=== PATIENT | female | born 1960 | race Caucasian/White ===

== ENCOUNTER 2020-02-03 20:27 | Emergency (ER) | payer OTHER ==
[2020-02-03] MEDS ORDERED: Sodium Chloride 0.9% 10 ML Syringe FLUSH PRN (21:19)
[2020-02-03] MEDS ORDERED: cefTRIAXone 2 GM in Sodium Chloride 0.9% 100 ML IV ONE (21:19)
--- NOTE | 2020-02-03 21:26 | EDM.PDOC ---
ED HPI GENERAL MEDICAL PROBLEM - General Chief Complaint: Bite:Animal, Insect Stated Complaint: SPIDER BITE Time Seen by Provider: 02/03/20 21:06 Source of Information: Reports: Patient, RN Notes Reviewed History Limitations: Reports: No Limitations - History of Present Illness INITIAL COMMENTS - FREE TEXT/NARRATIVE: Patient is a 60-year-old female who presents to the ED for evaluation of a spider bite. 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 She noticed that the redness started to spread from this area, and she felt the worst on Monday, with some slight fever feelings along with some chills, there is tenderness to the area, she has been using Tylenol for pain management, but has not not sought care for antibiotics. She became more concerned today, when the redness started to spread towards her groin, along with a lump in her groin area that she was concerned about. She denies any documented fever, cough/shortness of breath, nausea/vomiting/diarrhea. Patient did try to go to the walk-in clinic for management with a center here as they thought she could likely need IV antibiotics. Patient is also been using ice to the area to try to help the swelling. Generalized Pain Score (Numeric/FACES): 5 - Related Data Allergies Allergy/AdvReac Type Severity Reaction Status Date / Time No Known Allergies Allergy Verified 02/03/20 21:05 Home Meds: Home Meds Doxycycline [Vibramycin] 100 mg PO BID #20 tab 02/03/20 [Rx] Past Medical History - Past Health History Medical/Surgical History: Denies Medical/Surgical History - Past Surgical History GI Surgical History: Reports: Colonoscopy Social & Family History - Tobacco Use Smoking Status *Q: Never Smoker - Caffeine Use Caffeine Use: Reports: Coffee, Soda, Tea - Recreational Drug Use Recreational Drug Use: No ED ROS GENERAL - Review of Systems Review Of Systems: Comprehensive ROS is negative, except as noted in HPI. ED EXAM, ANIMAL BITE - Physical Exam Exam: See Below Exam Limited By: No Limitations General Appearance: Alert, WD/WN, No Apparent Distress Throat/Mouth: Normal Inspection, Normal Lips, Normal Teeth, Normal Gums, Normal Oropharynx, Normal Voice, No Airway Compromise Head: Atraumatic, Normocephalic Neck: Normal Inspection Respiratory/Chest: No Respiratory Distress, Lungs Clear, Normal Breath Sounds, No Accessory Muscle Use, Chest Non-Tender Cardiovascular: Normal Peripheral Pulses, Regular Rate, Rhythm, No Murmur GI/Abdominal: Normal Bowel Sounds, Soft, Non-Tender, No Distention, No Mass Extremities: Normal Inspection, Normal Capillary Refill Neurological: Alert, Oriented, Normal Cognition, No Motor/Sensory Deficits Psychiatric: Normal Affect, Normal Mood Skin Exam: Normal Color, Warm/Dry, Other (Roughly baseball sized area of erythema with slight tenderness on palpation to the right lower lateral abdomen. There is also redness that spreads into the patient's groin area, with 1 discrete lymph node that seems to be inflamed.) Lymphadenopathy: Right: Inguinal Adenopathy Course - Vital Signs Last Recorded V/S: Last Vital Signs Temp 98.5 F 02/03/20 21:14 Pulse 77 02/03/20 21:14 Resp 20 02/03/20 21:14 BP 138/90 02/03/20 21:14 Pulse Ox 100 02/03/20 21:14 - Orders/Labs/Meds Orders: Active Orders 24 hr Category Date Time Status Peripheral IV Care [RC] . DIRECTED Care 02/03/20 21:19 Ordered Sodium Chloride 0.9% [Saline Flush] Med 02/03/20 21:19 Active 10 ml FLUSH ASDIRECTED PRN Peripheral IV Insertion Adult [OM.PC] Stat Oth 02/03/20 21:19 Ordered Medication Orders Sodium Chloride (Saline Flush) 10 ml FLUSH ASDIRECTED PRN PRN Reason: Keep Vein Open Last Admin: 02/03/20 22:15 Dose: 10 ml Documented by: DANIEL Labs: Laboratory Tests 02/03/20 02/03/20 Range/Units 21:45 21:45 WBC 5.58 (3.98-10.04) K/mm3 RBC 4.00 (3.98-5.22) M/mm3 Hgb 12.5 (11.2-15.7) gm/dl Hct 37.8 (34.1-44.9) % MCV 94.5 (79.4-94.8) fl MCH 31.3 (25.6-32.2) pg MCHC 33.1 (32.2-35.5) g/dl RDW Std Deviation 41.3 (36.4-46.3) fL Plt Count 168 L (182-369) K/mm3 MPV 10.2 (9.4-12.3) fl Neutrophils % (Manual) 71 H (40-60) % Band Neutrophils % 0 (0-10) % Lymphocytes % (Manual) 19 L (20-40) % Atypical Lymphs % 0 % Monocytes % (Manual) 10 (2-10) % Eosinophils % (Manual) 0 L (0.7-5.8) % Basophils % (Manual) 0 L (0.1-1.2) Platelet Estimate Adequate RBC Morph Comment Normal Sodium 136 (136-145) mEq/L Potassium 4.0 (3.5-5.1) mEq/L Chloride 99 (98-107) mEq/L Carbon Dioxide 29 (21-32) mEq/L Anion Gap 12.0 (5-15) BUN 12 (7-18) mg/dL Creatinine 0.9 (0.55-1.02) mg/dL Est Cr Clr Drug Dosing 67.89 mL/min Estimated GFR (MDRD) > 60 (>60) mL/min BUN/Creatinine Ratio 13.3 L (14-18) Glucose 95 (74-106) mg/dL Calcium 10.0 (8.5-10.1) mg/dL Total Bilirubin 0.4 (0.2-1.0) mg/dL AST 55 H (15-37) U/L ALT 99 H (14-59) U/L Alkaline Phosphatase 186 H (46-116) U/L Total Protein 6.9 (6.4-8.2) g/dl Albumin 3.1 L (3.4-5.0) g/dl Globulin 3.8 gm/dL Albumin/Globulin Ratio 0.8 L (1-2) Meds: Medications Generic Name Dose Route Start Last Admin Trade Name Freq PRN Reason Stop Dose Admin Sodium Chloride 10 ml 02/03/20 21:19 02/03/20 22:15 Saline Flush FLUSH 10 ml ASDIRECTED PRN Administration Keep Vein Open Discontinued Medications Generic Name Dose Route Start Last Admin Trade Name Freq PRN Reason Stop Dose Admin Ceftriaxone Sodium 2 gm/ 100 mls @ 200 mls/hr 02/03/20 21:19 02/03/20 22:15 Sodium Chloride IV 02/03/20 21:48 200 mls/hr ONETIME ONE Administration - Re-Assessments/Exams Free Text/Narrative Re-Assessment/Exam: 02/03/20 21:25 Patient presents to the ED for evaluation of her spider bite. Does appear to be cellulitis, patient will be given 2 g Rocephin IV along with basic labs taken. She will be started on doxycycline on outpatient basis as she has not been tried on oral antibiotics prior to this, so she is technically not failed outpatient therapy. 02/03/20 22:35 Laboratory evaluation has come back and is essentially unremarkable, patient's transaminases are all mildly elevated, there are no other acute processes noted. Patient is not complaining of right upper abdominal pain, I will have her follow-up with her regular care provider for a redraw of her labs when she is feeling better to make sure that these levels are falling back to within normal limits. Departure - Departure Time of Disposition: 22:10 Disposition: Home, Self-Care 01 Condition: Good Clinical Impression: Cellulitis Qualifiers: Site of cellulitis: trunk Site of cellulitis of trunk: abdominal wall Qualified Code(s): L03.311 - Cellulitis of abdominal wall - Discharge Information *PRESCRIPTION DRUG MONITORING PROGRAM REVIEWED*: No *COPY OF PRESCRIPTION DRUG MONITORING REPORT IN PATIENT BARNEY: No Prescriptions: Doxycycline [Vibramycin] 100 mg PO BID #20 tab Instructions: Cellulitis, Adult, [id number] Forms: ED Department Discharge Additional Instructions: You were evaluated in the ER today regarding a suspected skin infection. It does appear that you have a cellulitis. Your skin was marked around the bord ers of the redness, if this redness should extend 2 finger widths past this initial edin, recommend you seek care for re-evaluation. Your first dose of IV antibiotics was given in the ER, and you were given a antibiotic, doxycycline 100 mg, twice daily for the next 10 days. Please take as prescribed until the course is done or told otherwise by different provider. Please note that this antibiotic will take at least 48 hours to start working appropriately. This medication was electronically prescribed to the [facility] located in the [place], you may go there tomorrow during business hours obtain this prescription and take as directed. You may start this tomorrow night, as the IV medication you received in the ER will cover you until then. You may try to use heat/ice packs to the area to help reduce pain/swelling. You may take 500 mg Tylenol or 600 mg ibuprofen every 6 hours as needed for further pain relief. Do not exceed 4000 mg Tylenol or 3200 mg ibuprofen in a 24-hour time span. Please return to the ER at any time if your symptoms change or worsen. Sepsis Event Note (ED) - Evaluation Sepsis Screening Result: No Definite Risk - Focused Exam Vital Signs: Vital Signs Temp Pulse Resp BP Pulse Ox 02/03/20 21:14 98.5 F 77 20 138/90 100 - My Orders Last 24 Hours: My Active Orders 02/03/20 21:19 Peripheral IV Care [RC] . DIRECTED Sodium Chloride 0.9% [Saline Flush] 10 ml FLUSH ASDIRECTED PRN Peripheral IV Insertion Adult [OM.PC] Stat - Assessment/Plan Last 24 Hours: My Active Orders 02/03/20 21:19 Peripheral IV Care [RC] . DIRECTED Sodium Chloride 0.9% [Saline Flush] 10 ml FLUSH ASDIRECTED PRN Peripheral IV Insertion Adult [OM.PC] Stat
== END 2020-02-03 22:50 | disposition home or self-care (01) ==
LOC: JD.ED 20:27
DX: L03.311 Cellulitis of abdominal wall (principal)
CPT/HCPCS: 36415; 80053; 85007; 85027; 96365; 99283; J0696; J7050

== ENCOUNTER 2024-02-27 08:38 | Day surgery (SDC) | payer BC ==
[~2024-02-27 08:38] MED LIST: Sodium Chloride 0.9% 10 ML Syringe FLUSH PRN; Sodium Chloride 0.9% 10 ML Syringe FLUSH SCH
[2024-02-27] MEDS ORDERED: Midazolam 1 MG/ML 2 ML SDV ONE (08:48)
[2024-02-27] MEDS ORDERED: Propofol 200 MG/20 ML SDV ONE ×2 (08:48)
[2024-02-27] MEDS ORDERED: Lidocaine 1% 4 ML ONE (08:48)
[2024-02-27] MEDS ORDERED: fentaNYL 100 MCG/2 ML SDV ONE (08:48)
[2024-02-27] MEDS: Lactated Ringers 1,000 ML IV SCH (09:00)
== END 2024-02-27 11:50 | disposition home or self-care (01) ==
LOC: JD.SDS 08:38
PROVIDERS: ATTEND Surgery
DX: Z12.11 Encounter for screening for malignant neoplasm of colon (principal); K57.30 Diverticulosis of large intestine without perforation or abscess without bleeding; Z79.899 Other long term (current) drug therapy
CPT/HCPCS: 45378; J2250; J2704; J3010; J7120; J3490